=== PATIENT | female | born 1945 | race Caucasian/White ===

== ENCOUNTER 2016-11-14 06:27 | Day surgery (SDC) | payer OTHER ==
[2016-11-09 16:54] VITALS: BMI 29.1
[2016-11-14] MEDS: TROPICAMIDE 1% OPHTH SOLN 15 ML BOTTLE ONE ×3 (07:00→07:10)
[2016-11-14] MEDS: CYCLOPENTOLATE 2% OPHTH SOLN 2 ML BOTTLE ONE ×3 (07:00→07:10)
[2016-11-14] MEDS: CIPROFLOXACIN 0.3% EYE DROPS 5 ML BOTTLE ONE ×3 (07:00→07:10)
[2016-11-14] MEDS: PHENYLEPHRINE 2.5% OPHTH SOLN 15 ML BOTTLE ONE ×3 (07:00→07:10)
[2016-11-14] MEDS ORDERED: LIDOCAINE 1% P/F 10 MG/ML VIAL ONE (07:38)
[2016-11-14] MEDS ORDERED: CARBACHOL 0.01% INTRA-OCULAR 1.5 ML VIAL ONE (07:38)
[2016-11-14] MEDS ORDERED: TETRACAINE 0.5% OPHTH SOLN 2 ML BOTTLE ONE (07:38)
[2016-11-14] MEDS ORDERED: BSS (NA/CA/MG/K) BALANCED SALT SOLUTION OPHTH SOLN 15 ML BOTTLE ONE (07:38)
[2016-11-14] MEDS ORDERED: NEO/POLYMYX B SULF/DEXAMETH OPHTHALMIC 5ML BOTTLE ONE (07:38)
[2016-11-14] MEDS ORDERED: EPINEPHrine 1:1,000 1 MG/1 ML - 30ML VIAL (INJECTION) ONE (07:39)
[2016-11-14] MEDS ORDERED: MIDAZOLAM HCL 2 MG/2 ML SINGLE DOSE VIAL ONE (07:59)
[2016-11-14] MEDS ORDERED: ONDANSETRON 4 MG/2 ML VIAL ONE (08:35)
[2016-11-14 09:43] VITALS: TEMP 97.8
[2016-11-14 09:45] VITALS: BP 104/63; PULSE 54
--- NOTE | 2016-11-15 11:01 | OP ---
DATE OF OPERATION: 11/14/2016 OPERATIVE PROCEDURE: Lens phacoemulsification with posterior chamber intraocular lens placement, right eye PREOPERATIVE DIAGNOSIS: Visually significant cataract of right eye POSTOPERATIVE DIAGNOSIS: Visually significant cataract of right eye SURGEON: Cirilo Beasley M.D. ANESTHESIA: MAC ANESTHESIOLOGIST: PROCEDURE: The patient was brought to the operating room and placed under monitored anesthesia care by Anesthesia. A drop of Tetracaine was then placed over the right eye. The patient was then prepped and draped in the usual sterile manner. A speculum was then placed over the right eye. The eye was then well irrigated with copious amounts of BSS (balanced salt solution). The operating microscope was then moved into position. A paracentesis was performed using a 15-degree blade. At this point 0.5 mL of 1% preservative free-lidocaine was injected into the anterior chamber. Amvisc plus was then injected into the anterior chamber. A clear corneal incision was then formed using a 2.2 mm keratome. A capsulorrhexis was then performed in a continuous circular fashion beginning with a cystotome completed with an Utratas forceps. Hydrodissection was then performed using BSS on a cannula. The phaco probe was then introduced through the corneal wound and the cataract was removed using the phaco chop technique. Approximately 3 seconds of absolute phaco time was used. The remaining cortex was then removed using irrigation and aspiration with an I/A probe. The capsule was then filled with regular Amvisc and the capsule was noted to be intact. A previously selected foldable posterior chamber intraocular lens was then injected into the capsule through the corneal wound using a lens injector. It was then dialed into position using a Sinskey hook. The Amvisc was then removed using irrigation and aspiration. Miostat was then injected through the paracentesis to constrict the pupil. The paracentesis and corneal wound were then hydrated and noted to be water tight. A drop of Maxitrol was then placed over the eye. The speculum was removed and clear shield was taped over the eye. The patient tolerated the procedure well and there were no surgical complications. The patient was asked to follow up in my office the next day. CIRILO BEASLEY M.D. [id number]
== END 2016-11-14 09:40 | disposition home or self-care (01) ==
LOC: FASU 06:27
PROVIDERS: ATTEND Ophthalmology
PROC: 08RJ3JZ Replacement of Right Lens with Synthetic Substitute, Percutaneous Approach (ICD-10-PCS; principal; 2016-11-14 08:33)
DX: H26.8 Other specified cataract (principal)

== ENCOUNTER 2023-02-16 05:07 | Day surgery (SDC) | payer OTHER ==
[2023-02-15 10:23] VITALS: BMI 30.7
[2023-02-16 12:58] VITALS: TEMP 98
[2023-02-16 13:45] VITALS: BP 126/55; PULSE 62; RESP 13
== END 2023-02-16 14:00 | disposition home or self-care (01) ==
LOC: JASU-ENDO 05:07
PROVIDERS: ATTEND Internal Medicine Gastroenterology
PROC: 0DB68ZX Excision of Stomach, Via Natural or Artificial Opening Endoscopic, Diagnostic (ICD-10-PCS; 2023-02-16)
PROC: 0DJD8ZZ Inspection of Lower Intestinal Tract, Via Natural or Artificial Opening Endoscopic (ICD-10-PCS; principal; 2023-02-16 12:30)
DX: K44.9 Diaphragmatic hernia without obstruction or gangrene (principal); K57.30 Diverticulosis of large intestine without perforation or abscess without bleeding; I10 Essential (primary) hypertension
CPT/HCPCS: 88305-TC; 88342-TC